=== PATIENT | female | born 1975 | race Caucasian/White ===

== ENCOUNTER 2018-09-17 10:40 | Emergency (ER) | payer SELFPAY ==
--- NOTE | 2018-09-17 12:38 | ER ---
Nurse's Notes [facility] Name: Catrachita Rock Age: 42 yrs Sex: Female : 1975 Arrival Date: 09/17/2018 Time: 10:40 Bed 17 Private MD: Diagnosis: Influenza due to other identified influenza virus Presentation: 09/17 10:52 Presenting complaint: Patient states: I stated with allergies about a week ago and now la1 it is progressing, losing my voice, worsening cough, and I think I had a fever at home. Transition of care: patient was not received from another setting of care. Onset of symptoms was September 17, 2018. Risk Assessment: Do you want to hurt yourself or someone else? Patient reports no desire to harm self or others. Initial Sepsis Screen: Does the patient meet any 2 criteria? No. Patient's initial sepsis screen is negative. Does the patient have a suspected source of infection? No. Patient's initial sepsis screen is negative. 10:52 Method Of Arrival: Ambulatory la1 10:52 Acuity: MARGY 4 la1 Historical: - Allergies: 10:54 No Known Allergies; la1 - PMHx: 10:54 None; la1 - PSHx: 10:54 None; la1 - Immunization history:: Adult Immunizations up to date. - Social history:: Smoking status: Patient/guardian denies using tobacco. - Ebola Screening: : No symptoms or risks identified at this time. Screenin:44 Abuse screen: Denies threats or abuse. Nutritional screening: No deficits noted. em Tuberculosis screening: No symptoms or risk factors identified. Fall Risk None identified. Assessment: 11:44 General: Appears in no apparent distress. uncomfortable, Behavior is calm, cooperative. em General: body aches. Pain: Complains of pain in "all over". Neuro: Level of Consciousness is awake, alert, obeys commands, Oriented to person, place, time, situation. Cardiovascular: Capillary refill < 3 seconds Patient's skin is warm and dry. Respiratory: Airway is patent Respiratory effort is even, unlabored, Respiratory pattern is regular, symmetrical, Breath sounds are clear bilaterally. GI: Abdomen is flat. : No signs and/or symptoms were reported regarding the genitourinary system. EENT: Throat is clear is pink. Derm: Skin is intact, Skin is pink, warm \\T\\ dry. Musculoskeletal: Range of motion: intact in all extremities. 11:50 Reassessment: I agree with above assessment. la1 12:47 Reassessment: Patient appears in no apparent distress at this time. Patient and/or em family updated on plan of care and expected duration. Pain level reassessed. Patient is alert, oriented x 3, equal unlabored respirations, skin warm/dry/pink. Vital Signs: 10:53 BP 125 / 67; Pulse 89; Resp 16; Temp 97.5; Pulse Ox 97% on R/A; Weight 73.48 kg; Height la1 5 ft. 7 in. (170.18 cm); 12:48 BP 116 / 69; Pulse 78; Resp 17; Pulse Ox 99% on R/A; em 10:53 Body Mass Index 25.37 (73.48 kg, 170.18 cm) la1 ED Course: 10:40 Patient arrived in ED. as 10:53 Triage completed. la1 10:54 Arm band placed on left wrist. la1 11:29 Velasquez Staton PA is PHCP. cp 11:29 Dominic Vernon MD is Attending Physician. cp 11:30 Guy Manzo LVN is Primary Nurse. em 11:44 Patient has correct armband on for positive identification. Bed in low position. Call em light in reach. Adult w/ patient. 12:47 No provider procedures requiring assistance completed. Patient did not have IV access em during this emergency room visit. Administered Medications: No medications were administered Outcome: 12:37 Discharge ordered by MD. cp 12:47 Discharged to home ambulatory, with family. em 12:47 Condition: good 12:47 Discharge instructions given to patient, Instructed on discharge instructions, follow up and referral plans. Demonstrated understanding of instructions, follow-up care, medications, Prescriptions given X 3. 12:48 Patient left the ED. em Signatures: Guy Manzo LVN LVN em Sameera Loaiza Lee, RN RN la1 Velasquez Staton PA PA cp Corrections: (The following items were deleted from the chart) 10:54 10:52 Acuity: MARGY 3 la1 la1
--- NOTE | 2018-09-17 12:38 | EDPHYS ---
Physician Documentation [facility] Name: Catrachita Rock Age: 42 yrs Sex: Female : 1975 Arrival Date: 09/17/2018 Time: 10:40 Bed 17 Private MD: ED Physician Dominic Vernon HPI: 09/17 11:45 This 42 yrs old Female presents to ER via Ambulatory with complaints of Chest cp Congestion, Sore Throat. 11:45 The patient or guardian reports cough, that is intermittent, with no sputum. cp 11:45 Onset: The symptoms/episode began/occurred yesterday. Associated signs and symptoms: cp Pertinent positives: rhinorrhea, sore throat, Pertinent negatives: chest pain, diarrhea, vomiting. Severity of symptoms: in the emergency department the symptoms are unchanged despite home interventions. Historical: - Allergies: 10:54 No Known Allergies; la1 - PMHx: 10:54 None; la1 - PSHx: 10:54 None; la1 - Immunization history:: Adult Immunizations up to date. - Social history:: Smoking status: Patient/guardian denies using tobacco. - Ebola Screening: : No symptoms or risks identified at this time. ROS: 11:50 Constitutional: Negative for chills, fever, poor PO intake. cp 11:50 Eyes: Negative for injury, pain, redness, and discharge. cp Exam: 11:57 Constitutional: The patient appears in no acute distress, alert, awake, cp non-diaphoretic, non-toxic, well developed, well nourished. 11:57 Head/Face: Normocephalic, atraumatic. cp 11:57 Eyes: Periorbital structures: appear normal, Conjunctiva: normal, no exudate, no injection, Sclera: no appreciated abnormality, Lids and lashes: appear normal, bilaterally. 11:57 ENT: External ear(s): are unremarkable, Ear canal(s): are normal, clear, TM's: bulging, is not appreciated, bilaterally, dullness, bilaterally, erythema, is not appreciated, bilaterally, Nose: nasal drainage, that is minimal, and is seen coming from both nares, Mouth: Lips: moist, Oral mucosa: moist, Posterior pharynx: Airway: no evidence of obstruction, patent, Tonsils: no enlargement, no exudate, Uvula: midline, swelling, is not appreciated, erythema, that is mild, exudate, is not appreciated, Voice: is hoarse. 11:57 Neck: ROM/movement: is normal, is supple, without pain, no range of motions limitations, no meningismus, no nuchal rigidity, Lymph nodes: no appreciated lymphadenopathy. 11:57 Chest/axilla: Inspection: normal, Palpation: is normal, no crepitus, no tenderness. 11:57 Cardiovascular: Rate: normal, Rhythm: regular. 11:57 Respiratory: the patient does not display signs of respiratory distress, Respirations: normal, no use of accessory muscles, no retractions, no splinting, no tachypnea, labored breathing, is not present, Breath sounds: decreased breath sounds, are not appreciated, stridor, is not appreciated, + upper airway congestion. wheezing: is not appreciated. 11:57 Abdomen/GI: Exam negative for discomfort, distension, guarding, Inspection: abdomen appears normal. 11:57 Skin: cellulitis, is not appreciated, no rash present. Vital Signs: 10:53 BP 125 / 67; Pulse 89; Resp 16; Temp 97.5; Pulse Ox 97% on R/A; Weight 73.48 kg; Height la1 5 ft. 7 in. (170.18 cm); 12:48 BP 116 / 69; Pulse 78; Resp 17; Pulse Ox 99% on R/A; em 10:53 Body Mass Index 25.37 (73.48 kg, 170.18 cm) la1 MDM: 11:29 Patient medically screened. cp 12:00 Differential diagnosis: bronchitis, flu, URI. cp 12:35 Data reviewed: vital signs, nurses notes, lab test result(s), and as a result, I will cp discharge patient. 12:36 Counseling: I had a detailed discussion with the patient and/or guardian regarding: the cp historical points, exam findings, and any diagnostic results supporting the discharge/admit diagnosis, lab results, to return to the emergency department if symptoms worsen or persist or if there are any questions or concerns that arise at home. 12:36 Special discussion: I discussed with the patient/guardian that the patient's current cp presentation does not indicate dosing of antibiotics. They should follow-up with their primary care provider and return if the symptoms persist or progress. 09/17 11:41 Order name: Influenza Screen (a \T\ B); Complete Time: 12:33 cp 09/17 12:33 Interpretation: Abnormal: FLUB FLU B ----- \T\nbsp; \T\nbsp; \T\nbsp; \T\nbsp; \T\nbsp; \T\nbs p; cp \T\nbsp; \T\nbsp; \T\nbsp; POSITIVE for FLU B protein antigen. 09/17 11:41 Order name: Strep; Complete Time: 12:33 cp 09/17 12:33 Interpretation: Reviewed. 09/17 12:27 Order name: Throat Culture EDMS Administered Medications: No medications were administered Disposition: 22:52 Co-signature as Attending Physician, Dominic Vernon MD I agree with the assessment and kdr plan of care. Disposition: 09/17/18 12:37 Discharged to Home. Impression: Influenza due to other identified influenza virus. - Condition is Stable. - Discharge Instructions: Influenza, Adult. - Prescriptions for Ibuprofen 800 mg Oral Tablet - take 1 tablet by ORAL route every 8 hours As needed take with food; 30 tablet. Tessalon Perles 100 mg Oral Capsule - take 1 capsule by ORAL route every 8 hours As needed; 15 capsule. Tamiflu 75 mg Oral Capsule - take 1 tablet by ORAL route every 12 hours for 5 days; 10 tablet. - Medication Reconciliation Form, Thank You Letter, Antibiotic Education, Prescription Opioid Use form. - Work release form (09/17/18 12:50). em1 - Follow up: Private Physician; When: 2 - 3 days; Reason: Recheck today's complaints. - Problem is new. - Symptoms are unchanged. Signatures: Dispatcher [employer] EDDominic Jauregui MD MD kdr Munoz, Edgar, FILAMENT CUTTER FILAMENT CUTTER Mack Louis RN RN la1 Velasquez Staton PA PA cp Martinez, Eric em1 Corrections: (The following items were deleted from the chart) 12:48 12:37 09/17/2018 12:37 Discharged to Home. Impression: Influenza due to other em identified influenza virus. Condition is Stable. Forms are Medication Reconciliation Form, Thank You Letter, Antibiotic Education, Prescription Opioid Use. Follow up: Private Physician; When: 2 - 3 days; Reason: Recheck today's complaints. Problem is new. Symptoms are unchanged. cp
== END 2018-09-17 12:48 | disposition home or self-care (01) ==
LOC: ER 10:40
DX: J10.1 Influenza due to other identified influenza virus with other respiratory manifestations (principal)
CPT/HCPCS: 87070; 87081; 87804; 99282